=== PATIENT | female | born 1975 | race African-American/Black ===

== ENCOUNTER 2017-11-14 23:18 | Observation (INO) | payer OTHER ==
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
[2017-11-14] MEDS ORDERED: SODIUM CHLORIDE 0.9% 1000 ML INFUS.BAG IV ONE (23:59)
[2017-11-14] MEDS ORDERED: ALBUTEROL SO4 2.5/IPRATROPIUM 0.5 INH SOL 3 ML VIAL.NEB. NEB ONE (23:59)
[2017-11-14] MEDS ORDERED: methylPREDNISolone NA SUCC 125 MG/2 ML VIAL IVPB ONE (23:59)
[2017-11-15] MEDS ORDERED: ACETAMINOPHEN 1000 MG/100 ML VIAL (NON FORMULARY) IVPB ONE (00:10)
[2017-11-15] MEDS ORDERED: ALBUTEROL SO4 2.5/IPRATROPIUM 0.5 INH SOL 3 ML VIAL.NEB. NEB ONE ×2 (00:15→02:17)
[2017-11-15 00:38] LABS: BASO % 1.1 % (0-2.0); EOS % 2.3 % (0-4.5); HEMATOCRIT 38.2 % (32.4-45.2); HEMOGLOBIN 13.3 GM/dL (10.7-15.3); LYMPH % 20.1 % (8-40); MCH 32.3 pg (25.7-33.7); MCHC 34.7 g/dl (32.0-36.0); MEAN PLT VOLUME 8.3 fl (7.5-11.1); MONO % 9.9 % (3.8-10.2); NEUT % 66.6 % (42.8-82.8); PLATELET COUNT 338 K/MM3 (134-434); RBC 4.11 M/mm3 (3.60-5.2); RDW 13.3 % (11.6-15.6); WHITE BLOOD COUNT 10.5 K/mm3 (4.0-10.0)
[2017-11-15] MEDS ORDERED: ACETAMINOPHEN INJECTION 100 ML IVPB ONE (00:39)
[2017-11-15] MEDS ORDERED: methylPREDNISolone NA SUCC 125 MG/2 ML VIAL ONE (00:40)
[2017-11-15 00:42] LABS: VENOUS PC02 42.7 mmHg (38-52); VENOUS PH 7.41 (7.32-7.42); VENOUS PO2 98.2 mmHg (28-48)
[2017-11-15] MEDS ORDERED: QUEtiapine FUMARATE 200 MG TABLET PO ONE (00:47)
[2017-11-15] MEDS ORDERED: QUEtiapine FUMARATE 100 MG TABLET (FP) ONE (00:50)
[2017-11-15 01:09] LABS: ALBUMIN 2.5 g/dl (3.4-5.0); ANION GAP 11 (8-16); BILIRUBIN,TOTAL 0.2 mg/dL (0.2-1.0); BLOOD UREA NITROGEN 16 mg/dL (7-18); CALCIUM 8.6 mg/dL (8.5-10.1); CHLORIDE 108 mmol/L (98-107); CO2 25 mmol/L (21-32); CREATININE 1.4 mg/dL (0.55-1.02); GLUCOSE,RANDOM 112 mg/dL (74-106); MAGNESIUM 1.9 mg/dL (1.8-2.4); POTASSIUM 4.1 mmol/L (3.5-5.1); SGOT/AST 32 U/L (15-37); SGPT/ALT 40 U/L (12-78); SODIUM 144 mmol/L (136-145); TOT PROT 5.7 g/dl (6.4-8.2)
[2017-11-15 01:11] LABS: ALK PHOS 50 U/L (45-117)
[2017-11-15] MEDS ORDERED: AZITHROMYCIN 250 MG TABLET PO ONE (01:16)
[2017-11-15] MEDS ORDERED: CEFTRIAXONE 1 GM in DEXTROSE 5%-WATER - 100 ML IVPB ONE (01:17)
[2017-11-15] MEDS ORDERED: CEFTRIAXONE 1 GM/50 ML BAG ONE (01:33)
[2017-11-15] MEDS ORDERED: ALBUTEROL SO4 0.083% IH SOL 2.5 MG/3 ML VIAL.NEB. NEB PRN (02:57)
[2017-11-15] MEDS ORDERED: AZITHROMYCIN 500 MG TABLET ONE (03:07)
--- NOTE | 2017-11-15 03:12 | HP ---
CHIEF COMPLAINT: SOB, detox HISTORY OF PRESENT ILLNESS: 42 year old female with a hx of polysubstance abuse, asthma and hypertension presents to the hospital with shortness of breath of 1 week duration. She was recently in the ED of [facility] 1 week ago for shortness of breath, for which she was given a "Shot" in her arm, given tylenol and sent home. She state that since then she began to have a productive cough with dark yellow sputum. She denies fevers, chills, nausea, vomiting, diarrhea, chest pain. The ED gave the patient a nebulizer, after which she felt better and was able to breathe. Additionally, patient states that she uses cocaine and PCP, last use was yesterday. She requests detox. ER course was notable for: (1) WBC 10.5 (2) CXR RML infiltrate (3) ROLANDO 1.4 PAST MEDICAL HISTORY: polysubstance abuse, asthma and hypertension Social History: Smoking: everyday smoker 1 pack/day for 26 years Alcohol: drinks every other day, drank yesterday Drugs: cocaine/PCP, last use yesterday Allergies No Known Allergies Allergy (Verified 07/28/15 22:39) HOME MEDICATIONS: Home Medications Medication Instructions Recorded Albuterol Sulfate Inhaler - 1 - 2 inh IH Q4H #0 inhaler 10/29/12 [Ventolin HFA Inhaler -] Amitriptyline HCl [Elavil -] 50 mg PO TID #90 tablet 07/29/15 Quetiapine Fumarate [Seroquel -] 200 mg PO TID #90 07/29/15 REVIEW OF SYSTEMS CONSTITUTIONAL: Absent: fever, chills, diaphoresis, generalized weakness, malaise, loss of appetite, weight change HEENT: Absent: rhinorrhea, nasal congestion, throat pain, throat swelling, difficulty swallowing, mouth swelling, ear pain, eye pain, visual changes CARDIOVASCULAR: Absent: chest pain, syncope, palpitations, irregular heart rate, lightheadedness , peripheral edema RESPIRATORY: cough Absent: , shortness of breath, dyspnea with exertion, orthopnea, wheezing, stridor, hemoptysis GASTROINTESTINAL: Absent: abdominal pain, abdominal distension, nausea, vomiting, diarrhea, constipation, melena, hematochezia GENITOURINARY: Absent: dysuria, frequency, urgency, hesitancy, hematuria, flank pain, genital pain MUSCULOSKELETAL: Absent: myalgia, arthralgia, joint swelling, back pain, neck pain SKIN: Absent: rash, itching, pallor HEMATOLOGIC/IMMUNOLOGIC: Absent: easy bleeding, easy bruising, lymphadenopathy, frequent infections ENDOCRINE: Absent: unexplained weight gain, unexplained weight loss, heat intolerance, cold intolerance NEUROLOGIC: Absent: headache, focal weakness or paresthesias, dizziness, unsteady gait, seizure, mental status changes, bladder or bowel incontinence PSYCHIATRIC: Absent: anxiety, depression, suicidal or homicidal ideation, hallucinations. PHYSICAL EXAMINATION Vital Signs - 24 hr 11/14/17 23:42 Temperature 97.9 F Pulse Rate 73 Respiratory 24 Rate Blood Pressure 145/77 O2 Sat by Pulse 100 Oximetry (%) GENERAL: Alert, and fully oriented, in no acute distress. Goes in and out of sleep quickly. EYES: PERRLA, EOMI ENT: Moist mucus membranes NECK: No JVD LUNGS: CTA, no wheezes HEART: RRR, no murmurs ABDOMEN: Soft, nontender, BS present MUSCULOSKELETAL: No CVA Tenderness EXTREMITIES: Pulses intact, no edema NEUROLOGICAL: Cranial nerves II-XII intact. Laboratory Results - last 24 hr 11/15/17 11/15/17 11/15/17 00:30 00:34 00:34 WBC RBC Hgb Hct MCV MCH MCHC RDW Plt Count MPV Neutrophils % Lymphocytes % Monocytes % Eosinophils % Basophils % VBG pH 7.41 POC VBG pCO2 42.7 POC VBG pO2 98.2 H Mixed VBG HCO3 26.5 H Sodium 144 Potassium 4.1 Chloride 108 H Carbon Dioxide 25 Anion Gap 11 BUN 16 Creatinine 1.4 H Creat Clearance w eGFR 41.44 Random Glucose 112 H Calcium 8.6 Magnesium 1.9 Total Bilirubin 0.2 AST 32 ALT 40 Alkaline Phosphatase 50 Creatine Kinase 39 Troponin I < 0.02 B-Natriuretic Peptide Total Protein 5.7 L Albumin 2.5 L HIV 1&2 Antibody Screen Negative HIV P24 Antigen Negative 11/15/17 11/15/17 00:34 00:34 WBC 10.5 H RBC 4.11 Hgb 13.3 Hct 38.2 MCV 93.0 MCH 32.3 MCHC 34.7 RDW 13.3 Plt Count 338 D MPV 8.3 Neutrophils % 66.6 Lymphocytes % 20.1 Monocytes % 9.9 Eosinophils % 2.3 Basophils % 1.1 VBG pH POC VBG pCO2 POC VBG pO2 Mixed VBG HCO3 Sodium Potassium Chloride Carbon Dioxide Anion Gap BUN Creatinine Creat Clearance w eGFR Random Glucose Calcium Magnesium Total Bilirubin AST ALT Alkaline Phosphatase Creatine Kinase Troponin I B-Natriuretic Peptide 58.05 Total Protein Albumin HIV 1&2 Antibody Screen HIV P24 Antigen ASSESSMENT/PLAN: 42 year old female with a hx of polysubstance abuse, asthma and hypertension presented to the hospital with SOB, cough and polysubstance abuse and admitted for observation #Right Middle Lobe Pneumonia: patient has infiltrate in RML on CXR and productive cough, -CURB-65 is 0 -given ceftriaxone/azithromycin in ED -will continue with levaquin 750 PO daily -recheck CBC for white count in AM -check vitals for fever in AM -can likely receive treatment as an outpatient #Polysubstance Abuse: patient used cocaine, PCP, marijuana and alcohol yesterday -Dr. Brown consult appreciated -Will likely be transferred to [facility] in the AM #Acute Kidney Injury: possibly prerenal in origin -fluid resuscitation with 1 bag of NS at 100cc/hr -repeat BMP in AM #Hypertension: unclear medications -will need to avoid b-blockers in setting of cocaine use -start amlodipine 5mg QD #Asthma: patient's breathing has improved since initial presentation after nebulizer treatment -albuterol nebulizer PRN given SOB or Wheezing #FEN -fluids with NS @ 100cc/hr -repeat BMP in Am -low-sodium diet #Prophylaxis -early ambulation #Disposition -admit obs Visit type - Emergency Visit Emergency Visit: Yes ED Registration Date: 11/15/17 Care time: The patient presented to the Emergency Department on the above date and was hospitalized for further evaluation of their emergent condition. - New Patient This patient is new to me today: Yes Date on this admission: 11/15/17 - Critical Care Critical Care patient: No Hospitalist Screening - Colonoscopy Questionnaire Colonoscopy Questionnaire: Colonoscopy Questionnaire - Patient: 50 - 75 years old and never had a screening colonoscopy: Unknown History of colon or rectal polyps, or CA: Unknown History of IBD, Crohn's disease or UC: Unknown History of abdominal radiation therapy as a child: Unknown - Relative: 1 with colon or rectal CA, or polyps at age 60 or younger: Unknown Colon or rectal CA diagnosed at age 45 or younger: Unknown Multiple relatives with colon or rectal CA: Unknown - Outcome: Screening Result: Negative Screen
[2017-11-15 03:18] LABS: HCG,QUALITATIVE URINE NEGATIVE
[2017-11-15 03:30] LABS: URINE APPEARANCE CLEAR; URINE BILIRUBIN NEGATIVE (<2.0 mg/dL); URINE COLOR LTYELLOW; URINE GLUCOSE (UA) NEGATIVE (NEGATIVE); URINE KETONE NEGATIVE (NEGATIVE); URINE LEUK ESTERASE NEGATIVE (NEGATIVE); URINE NITRITE NEGATIVE (NEGATIVE); URINE PROTEIN NEGATIVE (NEGATIVE)
[2017-11-15 03:39] LABS: OPIATES, URI NEGATIVE ng/ml (CUTOFF=300); URINE AMPHETAMINES NEGATIVE ng/ml (CUTOFF=500); URINE BARBITURATES NEGATIVE ng/ml (CUTOFF=200); URINE BENZODIAZEPINES NEGATIVE ng/ml (CUTOFF=200)
[2017-11-15 03:40] LABS: METHADONE, UR NEGATIVE ng/ml (CUTOFF=300)
[2017-11-15 03:42] LABS: COCAINE, UR POSITIVE ng/ml (CUTOFF=300); PHENCYCLIDINE,URINE POSITIVE ng/ml (CUTOFF=25)
[2017-11-15] MEDS ORDERED: ACETAMINOPHEN 325 MG TABLET (FP) PO PRN (04:36)
[2017-11-15] MEDS ORDERED: SODIUM CHLORIDE 1,000 ML IV SCH (04:45)
--- NOTE | 2017-11-15 05:18 | PN ---
Teaching Attending Note Name of Resident: Ankush Claros ATTENDING PHYSICIAN STATEMENT I saw and evaluated the patient. Chart, data, imaging reviewed. I reviewed the resident's note and discussed the case with the resident. I agree with the resident's findings and plan as documented. SUBJECTIVE: 42 year old female with a hx of polysubstance abuse including cocaine, pcp, marijuana, etoh, asthma and hypertension c/o shortness of breath of 1 week along with productive cough. Patient was also requesting detox for drug abuse history. CXR here performed showed right middle lobe infiltrate. OBJECTIVE: Last Vital Signs Temp Pulse Resp BP Pulse Ox 97.9 F 73 24 145/77 100 11/14/17 23:42 11/14/17 23:42 11/14/17 23:42 11/14/17 23:42 11/14/17 23:42 general - nontoxic, nad heent- atraumatic, normocephalic neck -supple, no jvd cv-s1+s2+rrr chest- cta abdomen- soft, nt, bs+ ext- no pedal edema Abnormal Lab Results 11/15/17 11/15/17 11/15/17 00:34 00:34 00:34 WBC 10.5 H POC VBG pO2 98.2 H Mixed VBG HCO3 26.5 H Chloride 108 H Creatinine 1.4 H Random Glucose 112 H Total Protein 5.7 L Albumin 2.5 L Urine Urobilinogen 11/15/17 02:50 WBC POC VBG pO2 Mixed VBG HCO3 Chloride Creatinine Random Glucose Total Protein Albumin Urine Urobilinogen 2.0 H cxr - reviewed by me, right middle lobe infiltrate seen ASSESSMENT AND PLAN: 42yo woman with polysubstance use with evidence of right mid lobe suggestive of infiltrate, with clinical symptoms suggestive of pneumonia. [id number] - 0 -observation -PO levaquin 750mg po daily -can likely d/c to detox -Dr. Brown evaluation #HTN- uncontrolled -start norvasc 5mg po daily #Polysubstance abuse -will d/c to detox dvt ppx -heparin sc
[2017-11-15] MEDS ORDERED: HEMOQUE TEST 1 EACH EACH ONE (07:04)
[2017-11-15] MEDS: INSULIN SLIDING SCALE (NOVOLOG) 1 VIAL SQ SCH ×2 (07:16→11:00)
[2017-11-15 07:18] LABS: HEMATOCRIT 40.1 % (32.4-45.2); HEMOGLOBIN 13.7 GM/dL (10.7-15.3); MCH 31.7 pg (25.7-33.7); MCHC 34.1 g/dl (32.0-36.0); MEAN CELL VOLUME 93.2 fl (80-96); MEAN PLT VOLUME 8.4 fl (7.5-11.1); PLATELET COUNT 362 K/MM3 (134-434); RDW 13.2 % (11.6-15.6)
[2017-11-15 08:30] LABS: ANION GAP 6 (8-16); BLOOD UREA NITROGEN 16 mg/dL (7-18); CALCIUM 8.8 mg/dL (8.5-10.1); CHLORIDE 106 mmol/L (98-107); CO2 27 mmol/L (21-32); GLUCOSE,RANDOM 202 mg/dL (74-106); PHOSPHOROUS 2.4 mg/dL (2.5-4.9); POTASSIUM 4.5 mmol/L (3.5-5.1); SODIUM 139 mmol/L (136-145)
[2017-11-15 09:12] LABS: CREATININE 1.1 mg/dL (0.55-1.02)
[2017-11-15 09:41] VITALS: BP 159/69; PULSE 93; TEMP 98
--- NOTE | 2017-11-15 09:48 | PN ---
Teaching Attending Note Name of Resident: Rae Cain ATTENDING PHYSICIAN STATEMENT I saw and evaluated the patient. I reviewed the resident's note and discussed the case with the resident. I agree with the resident's findings and plan as documented. SUBJECTIVE: Patient has no complaints. She denies CP, SOB, cough. OBJECTIVE: Vital Signs Period Temp Pulse Resp BP Sys/Steiner Pulse Ox Last 24 Hr 97.6 F-98.0 F 69-93 18-24 142-159/69-86 95-100 HEART: S1S2, RRR LUNGS: Clear ABDOMEN: Soft, non-tender, non-distended, normal BS EXTREMITIES: No edema Laboratory Results - last 24 hr 11/15/17 11/15/17 11/15/17 00:30 00:34 00:34 WBC RBC Hgb Hct MCV MCH MCHC RDW Plt Count MPV Neutrophils % Lymphocytes % Monocytes % Eosinophils % Basophils % VBG pH 7.41 POC VBG pCO2 42.7 POC VBG pO2 98.2 H Mixed VBG HCO3 26.5 H Sodium 144 Potassium 4.1 Chloride 108 H Carbon Dioxide 25 Anion Gap 11 BUN 16 Creatinine 1.4 H Creat Clearance w eGFR 41.44 POC Glucometer Random Glucose 112 H Calcium 8.6 Phosphorus Magnesium 1.9 Total Bilirubin 0.2 AST 32 ALT 40 Alkaline Phosphatase 50 Creatine Kinase 39 Troponin I < 0.02 B-Natriuretic Peptide Total Protein 5.7 L Albumin 2.5 L Urine Color Urine Appearance Urine pH Ur Specific Anderson Urine Protein Urine Glucose (UA) Urine Ketones Urine Blood Urine Nitrite Urine Bilirubin Urine Urobilinogen Ur Leukocyte Esterase Urine HCG, Qual Opiates Screen Methadone Screen Barbiturate Screen Phencyclidine Screen Ur Amphetamines Screen MDMA (Ecstasy) Screen Benzodiazepines Screen Cocaine Screen U Marijuana (THC) Screen HIV 1&2 Antibody Screen Negative HIV P24 Antigen Negative 11/15/17 11/15/17 11/15/17 00:34 00:34 02:49 WBC 10.5 H RBC 4.11 Hgb 13.3 Hct 38.2 MCV 93.0 MCH 32.3 MCHC 34.7 RDW 13.3 Plt Count 338 D MPV 8.3 Neutrophils % 66.6 Lymphocytes % 20.1 Monocytes % 9.9 Eosinophils % 2.3 Basophils % 1.1 VBG pH POC VBG pCO2 POC VBG pO2 Mixed VBG HCO3 Sodium Potassium Chloride Carbon Dioxide Anion Gap BUN Creatinine Creat Clearance w eGFR POC Glucometer Random Glucose Calcium Phosphorus Magnesium Total Bilirubin AST ALT Alkaline Phosphatase Creatine Kinase Troponin I B-Natriuretic Peptide 58.05 Total Protein Albumin Urine Color Urine Appearance Urine pH Ur Specific Anderson Urine Protein Urine Glucose (UA) Urine Ketones Urine Blood Urine Nitrite Urine Bilirubin Urine Urobilinogen Ur Leukocyte Esterase Urine HCG, Qual Opiates Screen Negative Methadone Screen Negative Barbiturate Screen Negative Phencyclidine Screen Positive Ur Amphetamines Screen Negative MDMA (Ecstasy) Screen Negative Benzodiazepines Screen Negative Cocaine Screen Positive U Marijuana (THC) Screen Positive HIV 1&2 Antibody Screen HIV P24 Antigen 11/15/17 11/15/17 11/15/17 02:50 07:00 07:00 WBC 10.0 RBC 4.30 Hgb 13.7 Hct 40.1 MCV 93.2 MCH 31.7 MCHC 34.1 RDW 13.2 Plt Count 362 MPV 8.4 Neutrophils % Lymphocytes % Monocytes % Eosinophils % Basophils % VBG pH POC VBG pCO2 POC VBG pO2 Mixed VBG HCO3 Sodium 139 Potassium 4.5 Chloride 106 Carbon Dioxide 27 Anion Gap 6 L BUN 16 Creatinine 1.1 H Creat Clearance w eGFR POC Glucometer Random Glucose 202 H Calcium 8.8 Phosphorus 2.4 L Magnesium 2.0 Total Bilirubin AST ALT Alkaline Phosphatase Creatine Kinase Troponin I B-Natriuretic Peptide Total Protein Albumin Urine Color Ltyellow Urine Appearance Clear Urine pH 6.0 Ur Specific Anderson 1.015 Urine Protein Negative Urine Glucose (UA) Negative Urine Ketones Negative Urine Blood Negative Urine Nitrite Negative Urine Bilirubin Negative Urine Urobilinogen 2.0 H Ur Leukocyte Esterase Negative Urine HCG, Qual Negative Opiates Screen Methadone Screen Barbiturate Screen Phencyclidine Screen Ur Amphetamines Screen MDMA (Ecstasy) Screen Benzodiazepines Screen Cocaine Screen U Marijuana (THC) Screen HIV 1&2 Antibody Screen HIV P24 Antigen 11/15/17 07:13 WBC RBC Hgb Hct MCV MCH MCHC RDW Plt Count MPV Neutrophils % Lymphocytes % Monocytes % Eosinophils % Basophils % VBG pH POC VBG pCO2 POC VBG pO2 Mixed VBG HCO3 Sodium Potassium Chloride Carbon Dioxide Anion Gap BUN Creatinine Creat Clearance w eGFR POC Glucometer [phone] Random Glucose Calcium Phosphorus Magnesium Total Bilirubin AST ALT Alkaline Phosphatase Creatine Kinase Troponin I B-Natriuretic Peptide Total Protein Albumin Urine Color Urine Appearance Urine pH Ur Specific Anderson Urine Protein Urine Glucose (UA) Urine Ketones Urine Blood Urine Nitrite Urine Bilirubin Urine Urobilinogen Ur Leukocyte Esterase Urine HCG, Qual Opiates Screen Methadone Screen Barbiturate Screen Phencyclidine Screen Ur Amphetamines Screen MDMA (Ecstasy) Screen Benzodiazepines Screen Cocaine Screen U Marijuana (THC) Screen HIV 1&2 Antibody Screen HIV P24 Antigen Current Medications Generic Name Dose Route Start Last Admin Trade Name Freq PRN Reason Stop Dose Admin Acetaminophen 650 mg 11/15/17 04:36 Tylenol - PO Q6H PRN PAIN LEVEL 1-5 Albuterol Sulfate 1 amp 11/15/17 02:57 Ventolin 0.083% Nebulizer Soln - NEB Q6H PRN SHORT OF BREATH/WHEEZING Amlodipine Besylate 5 mg 11/15/17 10:00 Norvasc - PO DAILY [facility] Sodium Chloride 1,000 mls @ 100 mls/hr 11/15/17 04:45 11/15/17 04:00 Normal Saline - IV 11/15/17 14:44 100 mls/hr ASDIR HAN Administration Insulin Aspart 0 vial 11/15/17 07:00 11/15/17 07:16 Novolog Vial Sliding Scale - SQ Not Given TIDAC [facility] Protocol Levofloxacin 750 mg 11/15/17 06:00 11/15/17 07:20 Levaquin - PO 750 mg DAILY@0600 [facility] Administration ASSESSMENT AND PLAN: This is a 42 year old woman with a history of HTN, asthma, substance abuse who presented to the ED with SOB and cough. 1. Pneumonia - Given Rocephin, Zithromax in ED - Currently on Levaquin PO 2. Substance abuse - Patient admits to using cocaine, PCP, marijuana, alcohol - Refusing detox/rehab 3. Acute kidney injury - Creatinine improved with IV fluid 4. HTN - Norvasc started 5. Asthma - Stable 6. Disposition - Ok for discharge on Levaquin
[2017-11-15] MEDS ORDERED: CEFTRIAXONE 1 GM in DEXTROSE 5%-WATER - 100 ML IVPB SCH (10:00)
[2017-11-15] MEDS ORDERED: AZITHROMYCIN IVPB 250 MG in DEXTROSE 5%-WATER - 250 ML IVPB SCH (10:00)
[2017-11-15] MEDS ORDERED: AZITHROMYCIN IVPB 500 MG in DEXTROSE 5%-WATER - 250 ML IVPB SCH (10:00)
[2017-11-15] MEDS ORDERED: amLODIPine BESYLATE 5 MG TABLET (FP) PO SCH (10:00)
--- NOTE | 2017-11-15 10:10 | DS ---
Physical Exam: SUBJECTIVE: Patient seen and examined. The patient id feeling much better today and she is requesting to go home. OBJECTIVE: Vital Signs Period Temp Pulse Resp BP Sys/Steiner Pulse Ox Last 24 Hr 97.6 F-98.0 F 69-93 18-24 142-159/69-86 95-100 PHYSICAL EXAM GENERAL: The patient is awake, alert, and fully oriented, in no acute distress. HEAD: Normal with no signs of trauma. EYES: extraocular movements intact, sclera anicteric, conjunctiva clear. ENT: Oropharynx clear without exudates, moist mucous membranes. NECK: Trachea midline, full range of motion, supple. LUNGS: Breath sounds equal, rhonchi on right side, no wheezes, no accessory muscle use. HEART: Regular rate and rhythm, S1, S2 without murmur, rub or gallop. ABDOMEN: Soft, nontender, nondistended, normoactive bowel sounds, no guarding, no rebound, no hepatosplenomegaly, no masses. EXTREMITIES: 2+ pulses, no edema. NEUROLOGICAL: Normal speech, gait not observed. PSYCH: Normal mood, normal affect. SKIN: Warm, dry, normal turgor, no rashes, LABS Laboratory Results - last 24 hr 11/15/17 11/15/17 11/15/17 00:30 00:34 00:34 WBC RBC Hgb Hct MCV MCH MCHC RDW Plt Count MPV Neutrophils % Lymphocytes % Monocytes % Eosinophils % Basophils % VBG pH 7.41 POC VBG pCO2 42.7 POC VBG pO2 98.2 H Mixed VBG HCO3 26.5 H Sodium 144 Potassium 4.1 Chloride 108 H Carbon Dioxide 25 Anion Gap 11 BUN 16 Creatinine 1.4 H Creat Clearance w eGFR 41.44 POC Glucometer Random Glucose 112 H Calcium 8.6 Phosphorus Magnesium 1.9 Total Bilirubin 0.2 AST 32 ALT 40 Alkaline Phosphatase 50 Creatine Kinase 39 Troponin I < 0.02 B-Natriuretic Peptide Total Protein 5.7 L Albumin 2.5 L Urine Color Urine Appearance Urine pH Ur Specific [place] Urine Protein Urine Glucose (UA) Urine Ketones Urine Blood Urine Nitrite Urine Bilirubin Urine Urobilinogen Ur Leukocyte Esterase Urine HCG, Qual Opiates Screen Methadone Screen Barbiturate Screen Phencyclidine Screen Ur Amphetamines Screen MDMA (Ecstasy) Screen Benzodiazepines Screen Cocaine Screen U Marijuana (THC) Screen HIV 1&2 Antibody Screen Negative HIV P24 Antigen Negative 11/15/17 11/15/17 11/15/17 00:34 00:34 02:49 WBC 10.5 H RBC 4.11 Hgb 13.3 Hct 38.2 MCV 93.0 MCH 32.3 MCHC 34.7 RDW 13.3 Plt Count 338 D MPV 8.3 Neutrophils % 66.6 Lymphocytes % 20.1 Monocytes % 9.9 Eosinophils % 2.3 Basophils % 1.1 VBG pH POC VBG pCO2 POC VBG pO2 Mixed VBG HCO3 Sodium Potassium Chloride Carbon Dioxide Anion Gap BUN Creatinine Creat Clearance w eGFR POC Glucometer Random Glucose Calcium Phosphorus Magnesium Total Bilirubin AST ALT Alkaline Phosphatase Creatine Kinase Troponin I B-Natriuretic Peptide 58.05 Total Protein Albumin Urine Color Urine Appearance Urine pH Ur Specific [place] Urine Protein Urine Glucose (UA) Urine Ketones Urine Blood Urine Nitrite Urine Bilirubin Urine Urobilinogen Ur Leukocyte Esterase Urine HCG, Qual Opiates Screen Negative Methadone Screen Negative Barbiturate Screen Negative Phencyclidine Screen Positive Ur Amphetamines Screen Negative MDMA (Ecstasy) Screen Negative Benzodiazepines Screen Negative Cocaine Screen Positive U Marijuana (THC) Screen Positive HIV 1&2 Antibody Screen HIV P24 Antigen 11/15/17 11/15/17 11/15/17 02:50 07:00 07:00 WBC 10.0 RBC 4.30 Hgb 13.7 Hct 40.1 MCV 93.2 MCH 31.7 MCHC 34.1 RDW 13.2 Plt Count 362 MPV 8.4 Neutrophils % Lymphocytes % Monocytes % Eosinophils % Basophils % VBG pH POC VBG pCO2 POC VBG pO2 Mixed VBG HCO3 Sodium 139 Potassium 4.5 Chloride 106 Carbon Dioxide 27 Anion Gap 6 L BUN 16 Creatinine 1.1 H Creat Clearance w eGFR POC Glucometer Random Glucose 202 H Calcium 8.8 Phosphorus 2.4 L Magnesium 2.0 Total Bilirubin AST ALT Alkaline Phosphatase Creatine Kinase Troponin I B-Natriuretic Peptide Total Protein Albumin Urine Color Ltyellow Urine Appearance Clear Urine pH 6.0 Ur Specific [place] 1.015 Urine Protein Negative Urine Glucose (UA) Negative Urine Ketones Negative Urine Blood Negative Urine Nitrite Negative Urine Bilirubin Negative Urine Urobilinogen 2.0 H Ur Leukocyte Esterase Negative Urine HCG, Qual Negative Opiates Screen Methadone Screen Barbiturate Screen Phencyclidine Screen Ur Amphetamines Screen MDMA (Ecstasy) Screen Benzodiazepines Screen Cocaine Screen U Marijuana (THC) Screen HIV 1&2 Antibody Screen HIV P24 Antigen 11/15/17 07:13 WBC RBC Hgb Hct MCV MCH MCHC RDW Plt Count MPV Neutrophils % Lymphocytes % Monocytes % Eosinophils % Basophils % VBG pH POC VBG pCO2 POC VBG pO2 Mixed VBG HCO3 Sodium Potassium Chloride Carbon Dioxide Anion Gap BUN Creatinine Creat Clearance w eGFR POC Glucometer [phone] Random Glucose Calcium Phosphorus Magnesium Total Bilirubin AST ALT Alkaline Phosphatase Creatine Kinase Troponin I B-Natriuretic Peptide Total Protein Albumin Urine Color Urine Appearance Urine pH Ur Specific [place] Urine Protein Urine Glucose (UA) Urine Ketones Urine Blood Urine Nitrite Urine Bilirubin Urine Urobilinogen Ur Leukocyte Esterase Urine HCG, Qual Opiates Screen Methadone Screen Barbiturate Screen Phencyclidine Screen Ur Amphetamines Screen MDMA (Ecstasy) Screen Benzodiazepines Screen Cocaine Screen U Marijuana (THC) Screen HIV 1&2 Antibody Screen HIV P24 Antigen HOSPITAL COURSE: Date of Admission:11/15/17 Date of Discharge: 11/15/17 Minutes to complete discharge: 35 Discharge Summary Reason For Visit: PNEUMONIA PCP/COCAINE DEPENDENCE Current Active Problems PCP dependence (Acute) Pneumonia (Acute) Wheezing (Acute) Cocaine dependence (Chronic) Hospital Course: 42 year old female with a hx of polysubstance abuse, asthma and hypertension presented to the hospital with shortness of breath of 1 week duration. She was recently in the ED of [facility] 1 week ago for shortness of breath, for which she was given a "Shot" in her arm, given tylenol and sent home. She state that since then she began to have a productive cough with dark yellow sputum. She denies fevers, chills, nausea, vomiting, diarrhea, chest pain. The ED gave the patient a nebulizer, after which she felt better and was able to breathe. The patient had CXR done that visualized RML infiltrate and elevated Creatinine to 1.4. Additionally, patient stated that she uses cocaine and PCP, last use was the day before coming to ED. She requested detox. The patient was admitted for right middle lobe pneumonia. Given Ceftriaxone/AZT and we continued Levaquin 750 mg daily. For polysubstance abuse: we consulted Dr. Brown. The patient refused to be transferred to [facility]. Acute Kidney Injury: possibly prerenal in origin, she was given fruid resuscitation: NS at 100cc/hr Hypertension: unknown home medications. We continued Norvasc 5 mg daily. Asthma: patient's breathing has improved since initial presentation after nebulizer treatment. Albuterol nebulizer PRN given. The patient was discharged home with recommendation to follow up with her PCP, [facility] and continue to take Levaquin 750 mg for 6 more days. Condition: Fair - Instructions Diet, Activity, Other Instructions: You were admitted to the hospital for pneumonia, dehydration and detox. We recommend that you will continue taking antibiotics Levaquin 750 mg once a day for 6 more days. The last dose will be Nov 21 2017. Continue to take the same medications as you were taking before coming to the hospital. We recommend abstinence from toxic substances and contacting [facility] for rehab. Please come back to emergency room if you have worsening of SOB, chest pain, palpitations or worsening of any of your symptoms. Referrals: Ami Lamb MD [Primary Care Provider] - 1 Week Disposition: HOME - Home Medications Comprehensive Discharge Medication List: Ambulatory Orders Albuterol Sulfate Inhaler - [Ventolin HFA Inhaler -] 1 - 2 inh IH Q4H #0 inhaler 10/29/12 Amitriptyline HCl [Elavil -] 50 mg PO TID #90 tablet 07/29/15 Quetiapine Fumarate [Seroquel -] 200 mg PO TID #90 07/29/15 Problem List - Problems (1) PCP dependence Code(s): F19.20 - OTHER PSYCHOACTIVE SUBSTANCE DEPENDENCE, UNCOMPLICATED (2) Pneumonia Code(s): J18.9 - PNEUMONIA, UNSPECIFIED ORGANISM (3) Alcohol dependence Code(s): F10.20 - ALCOHOL DEPENDENCE, UNCOMPLICATED (4) Cannabis dependence, uncomplicated Code(s): F12.20 - CANNABIS DEPENDENCE, UNCOMPLICATED (5) Cocaine dependence Code(s): F14.20 - COCAINE DEPENDENCE, UNCOMPLICATED This patient is new to me today: Yes Date on this admission: 11/16/17 Emergency Visit: Yes ED Registration Date: 11/15/17 Care time: The patient presented to the Emergency Department on the above date and was hospitalized for further evaluation of their emergent condition. Critical Care patient: No - Discharge Referral Referred to [facility] No
[2017-11-15] MEDS ORDERED: INSULIN (NOVOLOG) ASPART 100 UNITS/ML 10ML VIAL ONE (10:43)
--- NOTE | 2017-11-15 10:51 | CONSULT ---
Consult Detox [facility] Reason for Current Admission/Consult: substance use disorder Referred by:: ervin titus - Alcohol/Substance Use Hx Alcohol Use: No - Past Medical History ...LMP: 07/24/15 Assessment Plan - Diagnosis (1) PCP dependence Status: Acute (2) Cocaine dependence Status: Chronic (3) Cannabis dependence, uncomplicated Status: Chronic - Plan Plan: chart, imaging and labs reviewed. utox +ve cocaine, pcp and thc. Woudl refer to [facility] rehab if patient in agreement or intensive outpatient counseling [facility] or a program of the patient s choice. no indication for detox. vitmains ordered - Medication Detox Regimen/Protocol: Not Applicable
--- NOTE | 2017-11-15 11:43 | EKG ---
Test Reason : Blood Pressure : / mmHG Vent. Rate : 073 BPM Atrial Rate : 073 BPM P-R Int : 146 ms QRS Dur : 082 ms QT Int : 416 ms P-R-T Axes : 052 059 048 degrees QTc Int : 458 ms NORMAL SINUS RHYTHM NORMAL ECG NO PREVIOUS ECGS AVAILABLE Confirmed by RICHAR CARROLL MD ([id number]) on 11/15/2017 11:42:47 AM Referred By: Confirmed By:RICHAR CARROLL MD
[2017-11-15 12:28] VITALS: BMI 30.2
[2017-11-15] MEDS ORDERED: THIAMINE HCL 100 MG TABLET (FP) PO SCH (22:00)
[2017-11-16] MEDS ORDERED: PRENATAL VITAMINS W/ FOLIC ACID TABLET (FP) PO SCH (10:00)
== END 2017-11-15 11:15 | disposition home or self-care (01) ==
LOC: JER 23:18 → JERBED 11-15 02:31 → UNDOADMOB 11-15 02:40 → JERBED 11-15 02:40 → J5S 11-15 08:57
PROVIDERS: ADMIT Internal Medicine; ATTEND Internal Medicine
PROC: 3E03329 Introduction of Other Anti-infective into Peripheral Vein, Percutaneous Approach (ICD-10-PCS; principal; 2017-11-15)
PROC: 3E0333Z Introduction of Anti-inflammatory into Peripheral Vein, Percutaneous Approach (ICD-10-PCS; 2017-11-15)
PROC: 3E033NZ Introduction of Analgesics, Hypnotics, Sedatives into Peripheral Vein, Percutaneous Approach (ICD-10-PCS; 2017-11-15)
PROC: 3E0337Z Introduction of Electrolytic and Water Balance Substance into Peripheral Vein, Percutaneous Approach (ICD-10-PCS; 2017-11-15)
PROC: 3E0F7GC Introduction of Other Therapeutic Substance into Respiratory Tract, Via Natural or Artificial Opening (ICD-10-PCS; 2017-11-15)
DX: J18.9 Pneumonia, unspecified organism (principal); F14.20 Cocaine dependence, uncomplicated; F16.20 Hallucinogen dependence, uncomplicated; F12.20 Cannabis dependence, uncomplicated; I10 Essential (primary) hypertension; E11.9 Type 2 diabetes mellitus without complications; F17.210 Nicotine dependence, cigarettes, uncomplicated; J45.909 Unspecified asthma, uncomplicated; N17.9 Acute kidney failure, unspecified
CPT/HCPCS: 36415; 71045-TC-FY; 80048; 80053; 80307; 81003; 82550; 82803; 82962; 83735; 83880; 84100; 84484; 84703; 85025; 85027; 87389; 93005; 93010; 94640; 96361; 96365; 96375; 99285-25; G0378; J0131; J7030; J7620

== ENCOUNTER 2018-08-03 16:49 | Emergency (ER) | payer OTHER ==
[2018-08-03 17:06] VITALS: BMI 29.9
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
[2018-08-03] MEDS ORDERED: FOLIC ACID INJECTION - 1 MG, THIAMINE HCL 100 MG, MULTIVIT INJECTION ADULT 10 ML in SOD... IVPB ONE (17:35)
--- NOTE | 2018-08-03 18:10 | PDOC ---
Attending Attestation - Resident Resident Name: Rebecca Álvarez - ED Attending Attestation I have performed the following: I have examined & evaluated the patient, The case was reviewed & discussed with the resident, I agree w/resident's findings & plan, Exceptions are as noted - HPI HPI: 08/03/18 18:04 43 year old female with history of polysubstance abuse, asthma, HTN, bipolar disorder, schizophrenia, previous PNA presents with multiple complaints. The patient uses PCP, marijuana, and alcohol daily. Yesterday, she started to use crack cocaine (smoke) for the first time. She has been using the same drug dealer "Marcos" as prior. However, yesterday, after using crack cocaine, the patient reported feeling paranoid and concerned that there may have been "rat poison" in her crack cocaine. Since then, the patient reported feeling nausea, vomiting, diarrhea, and intermittent abdominal discomfort. No fevers or chills. No episodes of bleeding. The patient is reporting that she feels unwell. Intermittently with nonexertional chest pain. Pt also stated that she does not think she is withdrawing. She reports she is adherent to her seroquel. She states that she does not think that she is having auditory hallucinations. However, pt does want to make sure she wasn't smoking "rat poison" Came into the ED for further evaluation. Denies sick contacts or recent travels. - Physicial Exam PE: 08/03/18 18:16 GENERAL: Awake, alert, and fully oriented, in no acute distress HEAD: No signs of trauma EYES: EOMI, sclera anicteric, conjunctiva clear ENT: Auricles normal inspection, hearing grossly normal, nares patent, Moist mucosa NECK: Normal ROM, supple LUNGS: Breath sounds equal, clear to auscultation bilaterally. No wheezes, and no crackles HEART: Regular rate and rhythm, normal S1 and S2, no murmurs, rubs or gallops ABDOMEN: Soft, nontender, No guarding, no rebound. No masses EXTREMITIES: Normal range of motion, no edema. No clubbing or cyanosis. No cords, erythema, or tenderness NEUROLOGICAL: Cranial nerves II through XII grossly intact. Normal speech, normal gait SKIN: Warm, Dry, normal turgor, no rashes or lesions noted. - Medical Decision Making 08/03/18 18:17 Vital Signs Temp Pulse Resp BP Pulse Ox 98.3 F 100 H 20 197/114 H 100 08/03/18 16:55 08/03/18 16:55 08/03/18 16:55 08/03/18 16:55 08/03/18 16:55 43 year old female c/ multiple complaints Hx polysubstance abuse. I think she may be having some elements of paranoia, but she reports no feeling suicidal or homicidal. However, given her multiple complaints, will need to search for organic causes. Will send urine tox, acetaminophen, salicylate level, coags (for possible rat poison). Her GI symptoms does not seem at this point obviously from withdrawal given pt' s denial. However, will need to send labs. Will trial ativan given her anxiety. Reassess. 08/03/18 20:40 CBC, BMP 08/03/18 06:10 08/03/18 06:10 CMP Sodium 140 mmol/L (136-145) 08/03/18 06:10 Potassium 3.8 mmol/L (3.5-5.1) 08/03/18 06:10 Chloride 105 mmol/L (98-107) 08/03/18 06:10 Carbon Dioxide 27 mmol/L (21-32) 08/03/18 06:10 Anion Gap 7 MMOL/L (8-16) L 08/03/18 06:10 BUN 12 mg/dL (7-18) 08/03/18 06:10 Creatinine 1.0 mg/dL (0.55-1.3) 08/03/18 06:10 Creat Clearance w eGFR > 60 (>60) 08/03/18 06:10 Random Glucose 76 mg/dL (74-106) 08/03/18 06:10 Calcium 8.5 mg/dL (8.5-10.1) 08/03/18 06:10 Phosphorus 3.3 mg/dL (2.5-4.9) 08/03/18 06:10 Magnesium 1.9 mg/dL (1.8-2.4) 08/03/18 06:10 Total Bilirubin 0.2 mg/dL (0.2-1) 08/03/18 06:10 AST 24 U/L (15-37) 08/03/18 06:10 ALT 25 U/L (13-61) 08/03/18 06:10 Alkaline Phosphatase 72 U/L (45-117) 08/03/18 06:10 Total Protein 8.2 g/dl (6.4-8.2) 08/03/18 06:10 Albumin 4.3 g/dl (3.4-5.0) 08/03/18 06:10 Triglycerides 95 mg/dL (0-150) 08/03/18 06:10 Lipase 218 U/L (73-393) 08/03/18 06:10 INR, PTT INR 0.96 (0.83-1.09) 08/03/18 06:10 Ultrasound abdomen reviewed. No acute findings. 08/03/18 20:46 Pelvic ultrasound: bilateral ovarian cysts, with R ovarian cysts ~2.8 cm. The patient has been reassessed and feeling better. Will check urine. If the urine results are unremarkable, and the patient feels reassured by a normal INR (as rat poison would affect INR), and negative other findings, pt can be d/c'd home with follow up with PMD. 08/03/18 22:06 Chest xray reviewed, pending official radiology read. No infiltrates. Urine Test Results Urine Color Ltyellow 08/03/18 20:47 Urine Appearance Clear 08/03/18 20:47 Urine pH 7.0 (5.0-8.0) 08/03/18 20:47 Ur Specific [place] 1.016 (1.010-1.035) 08/03/18 20:47 Urine Protein Negative (NEGATIVE) 08/03/18 20:47 Urine Glucose (UA) Negative (NEGATIVE) 08/03/18 20:47 Urine Ketones Negative (NEGATIVE) 08/03/18 20:47 Urine Blood Negative (NEGATIVE) 08/03/18 20:47 Urine Nitrite Negative (NEGATIVE) 08/03/18 20:47 Urine Bilirubin Negative (<2.0 mg/dL) 08/03/18 20:47 Ur Leukocyte Esterase Negative (NEGATIVE) 08/03/18 20:47 Pt feels significantly better. Will d/c her home. *DC/Admit/Observation/Transfer Diagnosis at time of Disposition: Cocaine dependence, Alcohol dependence, PCP dependence Abdominal pain Qualifiers: Abdominal location: lower abdomen, unspecified Qualified Code(s): R10.30 - Lower abdominal pain, unspecified - Discharge Dispostion Disposition: HOME Condition at time of disposition: Stable - Referrals - Patient Instructions Printed Discharge Instructions: DI for Drug Abuse and Drug Addiction Additional Instructions: Please be careful with any future use. If you are ever are interested in detoxification, please go to [address] [place] [address]. Your workup here in the ER including chest xray, ultrasound of your abdomen and blood work and urine work is unremarkable. Please follow up with your doctor. - Post Discharge Activity Heart Score/ECG Review #1 ECG reviewed & interpreted by me at: 20:40 08/03/18 20:41 NSR 98, no std/sted, normal axis, normal intervals, QTC 487 msec 08/03/18 20:42 Q wave V1-V2
[2018-08-03 18:28] LABS: BASO % 0.8 % (0-2.0); EOS % 1.4 % (0-4.5); HEMATOCRIT 41.5 % (32.4-45.2); HEMOGLOBIN 14.4 GM/dL (10.7-15.3); LYMPH % 20.4 % (8-40); MCH 32.5 pg (25.7-33.7); MCHC 34.6 g/dl (32.0-36.0); MEAN CELL VOLUME 94.1 fl (80-96); MEAN PLT VOLUME 8.2 fl (7.5-11.1); NEUT % 71.4 % (42.8-82.8); PLATELET COUNT 302 K/MM3 (134-434); RBC 4.41 M/mm3 (3.60-5.2); RDW 13.4 % (11.6-15.6); WHITE BLOOD COUNT 10.8 K/mm3 (4.0-10.0)
[2018-08-03] MEDS ORDERED: LORazepam 2 MG/ML SDV VIAL ONE (18:30)
[2018-08-03 18:48] LABS: ALBUMIN 4.3 g/dl (3.4-5.0); ALK PHOS 72 U/L (45-117); ANION GAP 7 MMOL/L (8-16); BILIRUBIN,TOTAL 0.2 mg/dL (0.2-1); BLOOD UREA NITROGEN 12 mg/dL (7-18); CALCIUM 8.5 mg/dL (8.5-10.1); CHLORIDE 105 mmol/L (98-107); CO2 27 mmol/L (21-32); GLUCOSE,RANDOM 76 mg/dL (74-106); MAGNESIUM 1.9 mg/dL (1.8-2.4); PHOSPHOROUS 3.3 mg/dL (2.5-4.9); POTASSIUM 3.8 mmol/L (3.5-5.1); SGOT/AST 24 U/L (15-37); SGPT/ALT 25 U/L (13-61); SODIUM 140 mmol/L (136-145); TOT PROT 8.2 g/dl (6.4-8.2)
[2018-08-03 19:12] LABS: INR 0.96 (0.83-1.09); PROTHROMBIN TIME (PATIENT) 11.3 SEC (9.7-13.0)
[2018-08-03 19:31] LABS: LIPASE 218 U/L (73-393)
[2018-08-03 20:54] LABS: URINE APPEARANCE CLEAR; URINE BILIRUBIN NEGATIVE (<2.0 mg/dL); URINE COLOR LTYELLOW; URINE GLUCOSE (UA) NEGATIVE (NEGATIVE); URINE KETONE NEGATIVE (NEGATIVE); URINE LEUK ESTERASE NEGATIVE (NEGATIVE); URINE NITRITE NEGATIVE (NEGATIVE); URINE PROTEIN NEGATIVE (NEGATIVE)
[2018-08-03 21:05] LABS: METHADONE, UR NEGATIVE ng/ml (CUTOFF=300); OPIATES, URI NEGATIVE ng/ml (CUTOFF=300); URINE AMPHETAMINES NEGATIVE ng/ml (CUTOFF=500); URINE BARBITURATES NEGATIVE ng/ml (CUTOFF=200); URINE BENZODIAZEPINES NEGATIVE ng/ml (CUTOFF=200)
[2018-08-03 21:08] LABS: COCAINE, UR POSITIVE ng/ml (CUTOFF=300); PHENCYCLIDINE,URINE POSITIVE ng/ml (CUTOFF=25)
[2018-08-03 22:09] VITALS: BP 138/98; PULSE 86; TEMP 98.1
--- NOTE | 2018-08-04 11:09 | EKG ---
Test Reason : Blood Pressure : / mmHG Vent. Rate : 098 BPM Atrial Rate : 098 BPM P-R Int : 136 ms QRS Dur : 076 ms QT Int : 382 ms P-R-T Axes : 066 084 071 degrees QTc Int : 487 ms NORMAL SINUS RHYTHM POSSIBLE LEFT ATRIAL ENLARGEMENT SEPTAL INFARCT , AGE UNDETERMINED ABNORMAL ECG WHEN COMPARED WITH ECG OF 15-NOV-2017 00:25, SEPTAL INFARCT IS NOW PRESENT Confirmed by MAURICE ULLOA, CHIKA ([id number]) on 08/04/2018 11:09:10 AM Referred By: Confirmed By:CHIKA RICHARDS MD
== END 2018-08-04 04:35 | disposition home or self-care (01) ==
LOC: JER 16:49
PROC: 3E033GC Introduction of Other Therapeutic Substance into Peripheral Vein, Percutaneous Approach (ICD-10-PCS; principal; 2018-08-03)
PROC: 3E033GC Introduction of Other Therapeutic Substance into Peripheral Vein, Percutaneous Approach (ICD-10-PCS; 2018-08-03)
PROC: 3E033NZ Introduction of Analgesics, Hypnotics, Sedatives into Peripheral Vein, Percutaneous Approach (ICD-10-PCS; 2018-08-03)
DX: F10.20 Alcohol dependence, uncomplicated (principal); F14.20 Cocaine dependence, uncomplicated; F16.20 Hallucinogen dependence, uncomplicated; N83.201 Unspecified ovarian cyst, right side; N83.202 Unspecified ovarian cyst, left side; K80.20 Calculus of gallbladder without cholecystitis without obstruction; D72.829 Elevated white blood cell count, unspecified; I10 Essential (primary) hypertension; F31.9 Bipolar disorder, unspecified; F20.9 Schizophrenia, unspecified
CPT/HCPCS: 36415; 71045-TC-FY; 76700-TC; 76856-TC; 80053; 80307; 81003; 83690; 83735; 84100; 84478; 84703; 85025; 85610; 87040; 87086; 87389; 93005; 93010; 96365; 96366; 96375; 99284-25; J7030

== ENCOUNTER → 2018-09-16 | Emergency (ER) | payer OTHER ==
[~2018-09-16] MED LIST: IBUPROFEN 400 MG TABLET (FP) PO ONE; IBUPROFEN 600 MG TABLET (FP) PO ONE
--- NOTE | 2018-09-16 14:12 | PDOC ---
Rapid Medical Evaluation Time Seen by Provider: 09/16/18 14:08 Medical Evaluation: Allergies Allergy/AdvReac Type Severity Reaction Status Date / Time No Known Allergies Allergy Verified 09/16/18 13:56 09/16/18 14:08 I have performed a brief in-person evaluation of this patient. The patient presents with a chief complaint of lower abdominal pain. States pain to left lower abdomen with vaginal bleeding. Denies dysuria Pertinent physical exam findings NAD even and unlabored breathing + bowel sounds I have ordered the following urine preg, urinalysis, analgesia The patient will proceed to the ED for further evaluation.
[2018-09-16 14:13] VITALS: BP 137/64; PULSE 90; TEMP 98.3; BMI 29.9
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
[2018-09-16 15:07] LABS: HCG,QUALITATIVE URINE Negative
[2018-09-16 15:18] LABS: EOS % 1.5 % (0-4.5); HEMATOCRIT 39.3 % (32.4-45.2); HEMOGLOBIN 13.5 GM/dL (10.7-15.3); LYMPH % 30.3 % (8-40); MCH 32.5 pg (25.7-33.7); MCHC 34.3 g/dl (32.0-36.0); MEAN CELL VOLUME 94.8 fl (80-96); MEAN PLT VOLUME 8.9 fl (7.5-11.1); MONO % 7.6 % (3.8-10.2); NEUT % 59.6 % (42.8-82.8); PLATELET COUNT 234 K/MM3 (134-434); RBC 4.15 M/mm3 (3.60-5.2); RDW 12.8 % (11.6-15.6)
[2018-09-16 15:33] LABS: URINE APPEARANCE CLEAR; URINE BILIRUBIN NEGATIVE (<2.0 mg/dL); URINE COLOR YELLOW; URINE GLUCOSE (UA) NEGATIVE (NEGATIVE); URINE KETONE NEGATIVE (NEGATIVE); URINE LEUK ESTERASE NEGATIVE (NEGATIVE); URINE NITRITE NEGATIVE (NEGATIVE); URINE PROTEIN NEGATIVE (NEGATIVE)
[2018-09-16 15:45] LABS: ALBUMIN 3.6 g/dl (3.4-5.0); ALK PHOS 48 U/L (45-117); ANION GAP 6 MMOL/L (8-16); BILIRUBIN,TOTAL 0.4 mg/dL (0.2-1); BLOOD UREA NITROGEN 21 mg/dL (7-18); CALCIUM 8.5 mg/dL (8.5-10.1); CHLORIDE 111 mmol/L (98-107); CO2 24 mmol/L (21-32); GLUCOSE,RANDOM 75 mg/dL (74-106); POTASSIUM 4.4 mmol/L (3.5-5.1); SGOT/AST 26 U/L (15-37); SGPT/ALT 21 U/L (13-61); SODIUM 142 mmol/L (136-145); TOT PROT 6.7 g/dl (6.4-8.2)
--- NOTE | 2018-09-16 16:10 | PDOC ---
Attending Attestation - Resident Resident Name: Rebecca Álvarez - ED Attending Attestation I have performed the following: I have examined & evaluated the patient, The case was reviewed & discussed with the resident, I agree w/resident's findings & plan, Exceptions are as noted
[2018-09-16 17:39] LABS: EPI CELLS 2+ /HPF (FEW)
[2018-09-16 17:40] LABS: URINE BACTERIA 1+ /hpf (NONE SEEN); URINE MUCUS 2+
== END | disposition home or self-care (01) ==
LOC: JER 13:31
DX: N83.202 Unspecified ovarian cyst, left side (principal); D25.2 Subserosal leiomyoma of uterus; J45.909 Unspecified asthma, uncomplicated; E11.9 Type 2 diabetes mellitus without complications; I10 Essential (primary) hypertension; F31.9 Bipolar disorder, unspecified; F20.9 Schizophrenia, unspecified
CPT/HCPCS: 36415; 76830-TC; 80053; 81003; 81015; 84703; 85025; 87086; 87389; 87491; 87591; 99281-25